=== PATIENT | female | born 1960 | race African-American/Black ===

== ENCOUNTER 2017-11-22 08:24 | Outpatient (CLI) | payer BC | END 2017-11-22 08:25 | disposition home or self-care (01) | LOC: BICMAMMO 08:24 | PROVIDERS: ATTEND Physician Assistant | DX: Z12.31 Encounter for screening mammogram for malignant neoplasm of breast (principal); Z80.3 Family history of malignant neoplasm of breast | CPT/HCPCS: 77063; 77067 ==

== ENCOUNTER 2018-01-15 08:47 | Outpatient (CLI) | payer BC ==
--- NOTE | 2018-01-15 10:50 | RAD ---
BARIUM SWALLOW ESOPHAGRAM: HISTORY: R11.10, vomiting. COMPARISON: None. FINDINGS: The surveyor's assistant radiograph demonstrated clear lungs. 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 The alpha angle of the Lap-Band is 56. The lungs are clear. No pneumothorax. The patient was given a half dose of crystals to swallow. The patient tolerated this well. Next, th e patient was given thick liquid barium. Primary and secondary peristalsis were normal. The opening of the Lap-Band was patent. No reflux. No significant hernia. IMPRESSION: Intact Lap-Band without significant narrowing. POS: [facility]
== END 2018-01-15 08:48 | disposition home or self-care (01) ==
LOC: RAD 08:47
PROVIDERS: ATTEND Surgery
DX: R11.10 Vomiting, unspecified (principal)
CPT/HCPCS: 74220

== ENCOUNTER 2018-01-17 15:21 | Outpatient (CLI) | payer BC | END 2018-01-17 15:22 | disposition home or self-care (01) | LOC: DTY/OP 15:21 | PROVIDERS: ATTEND Surgery | DX: E66.01 Morbid (severe) obesity due to excess calories (principal) | CPT/HCPCS: 97802 ==

== ENCOUNTER 2018-12-05 07:59 | Outpatient (CLI) | payer BC ==
--- NOTE | 2018-12-05 08:33 | MMO ---
Bilateral MAMMO Bilat Screen [facility]. CLINICAL HISTORY: Patient is 58 years old and is seen for screening. The patient has the following family history of breast cancer: mother. The patient has no personal history of cancer. VIEWS: The views performed were: bilateral craniocaudal with tomosynthesis and bilateral mediolateral oblique with tomosynthesis. FILMS COMPARED: The present examination has been compared to a prior imaging study performed at [facility] on 11/22/2017. MAMMOGRAM FINDINGS: There are scattered fibroglandular densities. There are no suspicious masses, suspicious calcifications, or new areas of architectural distortion. IMPRESSION: THERE IS NO MAMMOGRAPHIC EVIDENCE OF MALIGNANCY. A ROUTINE FOLLOW-UP MAMMOGRAM IN 1 YEAR IS RECOMMENDED. THE RESULTS OF THIS EXAM WERE SENT TO THE PATIENT. ACR BI-RADS Category 1 - Negative MAMMOGRAPHY NOTE: 1. A negative mammogram report should not delay a biopsy if a dominant of clinically suspicious mass is present. 2. Approximately 10% to 15% of breast cancers are not detected by mammography. 3. Adenosis and dense breasts may obscure an underlying neoplasm. Reported by: WAQAS FERNANDEZ MD Electonically Signed: [id number]
== END 2018-12-05 08:00 | disposition home or self-care (01) ==
LOC: BICMAMMO 07:59
PROVIDERS: ATTEND Physician Assistant
DX: Z12.31 Encounter for screening mammogram for malignant neoplasm of breast (principal); Z80.3 Family history of malignant neoplasm of breast
CPT/HCPCS: 77063; 77067

== ENCOUNTER 2022-09-12 15:32 | Outpatient (CLI) | payer BC | END 2022-09-12 15:33 | disposition home or self-care (01) | LOC: DTY/OP 15:32 | PROVIDERS: ATTEND Surgery | DX: E66.01 Morbid (severe) obesity due to excess calories (principal); K21.9 Gastro-esophageal reflux disease without esophagitis; Z98.84 Bariatric surgery status | CPT/HCPCS: 97802 ==